=== PATIENT | female | born 1955 | race Caucasian/White ===

== ENCOUNTER → 2021-08-20 | Day surgery (SDC) | payer OTHER ==
[~2021-08-20] VITALS: Ht 162.6 cm; Wt 88.0 kg
[~2021-08-20] MED LIST: CARDIZEM CD120 MG PO; FLONASE ALLER15.8 ML; HCTZ12.5 MG PO; LIPITOR20 MG PO; VIT B-12 PO; VIT D PO
== END | disposition home or self-care (01) ==
LOC: FAS 12:25
DX: M19.011 Primary osteoarthritis, right shoulder (principal); M75.111 Incomplete rotator cuff tear or rupture of right shoulder, not specified as traumatic; M75.41 Impingement syndrome of right shoulder; G89.18 Other acute postprocedural pain; M75.51 Bursitis of right shoulder; I10 Essential (primary) hypertension; E78.5 Hyperlipidemia, unspecified; I48.91 Unspecified atrial fibrillation; Z90.710 Acquired absence of both cervix and uterus; Z79.1 Long term (current) use of non-steroidal anti-inflammatories (NSAID); Z79.899 Other long term (current) drug therapy
CPT/HCPCS: J0171; J0690; J1100; J2250; J2370; J2405; J2704; J2795; J3010; J7120